=== PATIENT | female | born 1975 | race African-American/Black ===

== ENCOUNTER 2016-11-27 19:53 | Emergency (ER) | payer BC ==
--- NOTE | ~2016-11-27 | CT16 ---
[facility] A Service of [facility] RADIOLOGY TEXT RESULTS PATIENT: CECILLE AGUIRRE LOCATION: SED : [birth year] UNIT #: [id number] AGE: [address]: Benton Gutierrez MD SEX: F ORDER DR: [id number] [address] [address] [id number] E MR#: [id number] Acc #: [id number] NAME: CECILLE AGUIRRE : 1975 SEX: F STUDY DATE/TIME: 11/27/2016 20:53 UNIT: SED ROOM: STUDY DESCRIPTION: CT Angio Chest for PE Attending Physician: Benton Gutierrez M.D. Ordering Physician: Benton Gutierrez M.D. Primary Care Physician: Sarah Burt M.D. MEDICAL IMAGING REPORT This report is preliminary unless electronic signature is present. EXAM CT angiogram chest with IV contrast HISTORY Mid and left side chest pain today. Elevated D-dimer. FINDINGS IV contrast-enhanced CT angiogram of the chest was performed with 3-D reconstructions. This CT exam was performed with one or more of the following radiation dose reduction techniques: Automatic exposure control, adjustment of mA and/or kV according to patient size, and iterative reconstruction. No pulmonary infiltrates or effusions. No pulmonary embolus. Normal pulmonary arterial enhancement. No adenopathy. No pericardial effusion. Normal caliber thoracic aorta. IMPRESSION 1. No acute findings. 2. No pulmonary embolus. 3. No pulmonary infiltrates or effusions. Dictated by... Ulisses Jimenez M.D. THIS IS AN ELECTRONICALLY VERIFIED REPORT Ulisses Jimenez M.D. at 11/28/2016 2:21 PM DFL/psc TD: 11/28/2016 05:27 [facility] A Service of [facility] RADIOLOGY TEXT RESULTS PATIENT: CECILLE AGUIRRE LOCATION: SED : [birth year] UNIT #: [id number] AGE: [address]: Benton Gutierrez MD SEX: F ORDER DR: JOB #: [id number] MEDICAL IMAGING REPORT
--- NOTE | ~2016-11-27 | EKG ---
PATIENT: CECILLE AGUIRRE UNIT #: [id number] Ventricular Rate: 83 BPM Atrial Rate: 83 BPM P-R Interval: 172 ms QRS Duration: 76 ms Q-T Interval: 392 ms QTC Calculation(Bezet): 460 ms P [place]: 58 degrees Calculated R [place]: 68 degrees Calculated T [place]: 43 degrees Diagnosis Line: Normal sinus rhythm Diagnosis Line: Nonspecific T wave abnormality Diagnosis Line: Prolonged QT Diagnosis Line: Abnormal ECG Diagnosis Line: When compared with ECG of 20-MAY-2016 22:58, Diagnosis Line: Nonspecific T wave abnormality now evident in Diagnosis Line: Lateral leads Diagnosis Line: Confirmed by VERENICE SPRINGER MD ([id number]) on Diagnosis Line: 01/09/2017 7:02:21 AM INTERPRETING CECILIA SINCLAIR
[~2016-11-27 19:53] MED LIST: ALBUTEROL HFA INH; ANAPROX DS550 M1 PO; BACTRIM DS TABL1 TA1 PO; BENADRYL; DICLOFENAC PO; DIOVAN; FLEXERIL10 M1 PO; FLEXERIL10 MG PO; FOLIC ACID1 MG PO; HYDROCODON-ACE1 EAC9; IRON PILL PO; MACROBID100 M1 PO; METOPROLOL TAR25 MG; METOPROLOL TAR25 MG PO; NORCO1 TAB 10/3; PERCOCET PO; PREDNISONE PO; PRILOSEC; PRILOSEC20 M1 PO; ROBAXIN500 MG PO; STOMACH MED PO; ULTRAM PO; VOLTAREN75 MG PO; ZANTAC; ZOFRAN ODT4 MG PO; ZYRTEC10 M1 PO; [UNRECOGNIZED DRUG - REMARK]
[2016-11-27 19:55] LABS: BASOPHIL# 0.1 X10e3 (0-0.3); BASOPHIL% 0.8 % (0-2.5); EOSINOPHIL# 0.2 X10e3 (0-0.7); EOSINOPHIL% 2.3 % (0.0-7.0); HEMATOCRIT 34.9 % (35.0-45.0); HEMOGLOBIN 11.5 gm/dL (12.0-16.0); LYMPHOCYTE# 2.2 X10e3 (1.0-3.5); LYMPHOCYTE% 25.7 % (17.0-45.0); MEAN CELL VOLUME 81.2 FL (83-96); MEAN CORPUSCULAR HEMOGLOBIN 26.9 PG (28-34); MEAN CORPUSCULAR HGB CONC 33.1 g/dL (30-36); MEAN PLATELET VOLUME 9.6 FL (6.5-11.5); MONOCYTE# 0.7 X10e3 (0-1.0); NEUTROPHIL# 5.5 X10e3 (1.5-7.1); NEUTROPHIL% 63.2 % (40-75); PLATELET COUNT 244 X10e3 (140-420); RED BLOOD COUNT 4.29 X10e (3.90-5.30); RED CELL DISTRIBUTION WIDTH 23.4 % (11.0-15.5); WHITE BLOOD COUNT 8.7 X10e3 (4.0-10.5)
[2016-11-27 19:58] LABS: DIFF IND NO
[2016-11-27 20:04] LABS: INR 1.1; PROTHROMBIN TIME (PATIENT) 12.6 SECONDS (9.5-12.4)
[2016-11-27 20:11] LABS: PARTIAL THROMBOPLASTIN TIME 25.1 SECONDS (25.6-38.1)
[2016-11-27 20:13] LABS: ALKALINE PHOSPHATASE 54 U/L (32-92); ALT (SGPT) 15 U/L (10-40); AST (SGOT) 20 U/L (10-42); BILIRUBIN,TOTAL 0.2 mg/dL (0.2-2.0); BLOOD UREA NITROGEN 7 mg/dL (9-23); BUN/CREATININE RATIO 8.75; CALCIUM SERUM 8.9 mg/dL (8.4-10.2); CARBON DIOXIDE 23 mmol/L (22-31); CHLORIDE 105 mmol/L (100-111); CREATININE SERUM 0.8 mg/dL (0.6-1.4); GLOM FILT RATE Estimated ABOVE60 mL/min (>60); GLUCOSE FASTING 94 mg/dL (70-110); POTASSIUM 3.7 mmol/L (3.5-5.1); PROTEIN TOTAL SERUM 7.4 g/dL (6.0-8.3); SODIUM 136 mmol/L (135-145)
[2016-11-27 20:14] LABS: BILIRUBIN, DIRECT <0.1 mg/dL (0.0-0.2); BILIRUBIN,INDIRECT 0.1 mg/dL (0.0-0.9)
[2016-11-27 20:15] LABS: POC - CKMB <1.0 ng/mL (0.0-7.9); POC - MYOGLOBIN 64.5 ng/mL (0.0-169.0); POC - TROPONIN <0.05 ng/mL (<=0.05)
[2016-11-27 22:52] LABS: POC - CKMB <1.0 ng/mL (0.0-7.9); POC - MYOGLOBIN 65.5 ng/mL (0.0-169.0)
[2016-11-27 22:53] LABS: POC - TROPONIN <0.05 ng/mL (<=0.05)
[2017-06-12] MEDS ORDERED: NO MEDICATIONS (21:51)
[2017-06-12] MEDS ORDERED: PRILOSEC (21:51)
== END 2016-11-27 23:24 | disposition home or self-care (01) ==
LOC: SED 19:53
PROVIDERS: Emergency Medicine
DX: R07.9 Chest pain, unspecified (principal); F41.9 Anxiety disorder, unspecified; Z98.890 Other specified postprocedural states
CPT/HCPCS: 36415; 71275; 80048; 80076; 82553; 83874; 84484; 85025; 85379; 85610; 85730; 93005; 99284; Q9967

== ENCOUNTER 2017-03-18 18:08 | Emergency (ER) | payer BC ==
--- NOTE | ~2017-03-18 | CT4 ---
[facility] A Service of [facility] RADIOLOGY TEXT RESULTS PATIENT: CECILLE AGUIRRE LOCATION: SED : [birth year] UNIT #: [id number] AGE: [address]: Benton Gutierrez MD SEX: F ORDER DR: [id number] [address] [address] [id number] E MR#: [id number] Acc #: [id number] NAME: CECILLE AGUIRRE : 1975 SEX: F STUDY DATE/TIME: 03/18/2017 19:58 UNIT: SED ROOM: STUDY DESCRIPTION: CT Abd and Pelv Wo Cont Attending Physician: Benton Gutierrez M.D. Ordering Physician: Josey Hall M.D. Primary Care Physician: Sarah Burt M.D. MEDICAL IMAGING REPORT This report is preliminary unless electronic signature is present. EXAM CT abdomen and pelvis without contrast, PROCEDURE Axial unenhanced CT abdomen and pelvis with multiplanar reformats. This CT exam was performed with one or more of the following radiation dose reduction techniques: automatic exposure control, adjustment of mA and/or kV according to patient size, and iterative reconstruction. COMPARISON Prior CT abdomen and pelvis dated 05/01/2010. CLINICAL HISTORY Left lower quadrant abdominal pain for one day. FINDINGS The lung bases are normal. ABDOMEN: The liver and gallbladder and spleen and pancreas and kidney and adrenal glands are normal. The aorta is normal in caliber. There is no bowel obstruction. PELVIS: There is no pelvic mass or inflammatory change or abnormal fluid collection. The appendix is difficult to identify but appears normal. There is moderate uterine enlargement, and the uterus appears to either be blood filled or contain a large fibroid up to 5.5 cm in size. IMPRESSION Blood or fibroid or other isodense material fills the uterus which appears somewhat dilated with a 5-6 cm structure filling the uterine cavity. Otherwise negative. No renal or bowel or biliary obstruction. No mass or STS. [facility] A Service of [facility] RADIOLOGY TEXT RESULTS PATIENT: CECILLE AGUIRRE LOCATION: SED : [birth year] UNIT #: [id number] AGE: [address]: Benton Gutierrez MD SEX: F ORDER DR: inflammatory change or acute abnormality. Dictated by... Jay Echeverria M.D. THIS IS AN ELECTRONICALLY VERIFIED REPORT Jay Echeverria M.D. at 03/21/2017 5:34 PM CLIFF/judah TD: 03/19/2017 04:02 JOB #: [id number] MEDICAL IMAGING REPORT Page 1 of 1
[2017-03-18 19:04] LABS: BASOPHIL% 0.2 % (0-2.5); EOSINOPHIL# 0.2 X10e3 (0-0.7); EOSINOPHIL% 2.5 % (0.0-7.0); HEMATOCRIT 35.3 % (35.0-45.0); HEMOGLOBIN 11.7 gm/dL (12.0-16.0); LYMPHOCYTE% 31.3 % (17.0-45.0); MEAN CELL VOLUME 81.9 FL (83-96); MEAN CORPUSCULAR HEMOGLOBIN 27.1 PG (28-34); MEAN CORPUSCULAR HGB CONC 33.1 g/dL (30-36); MEAN PLATELET VOLUME 9.3 FL (6.5-11.5); MONOCYTE# 0.7 X10e3 (0-1.0); MONOCYTE% 11.2 % (3.0-12.0); NEUTROPHIL# 3.5 X10e3 (1.5-7.1); NEUTROPHIL% 54.8 % (40-75); PLATELET COUNT 249 X10e3 (140-420); RED BLOOD COUNT 4.31 X10e (3.90-5.30); RED CELL DISTRIBUTION WIDTH 15.4 % (11.0-15.5); WHITE BLOOD COUNT 6.4 X10e3 (4.0-10.5)
[2017-03-18 19:05] LABS: DIFF IND NO
[2017-03-18 19:22] LABS: ALBUMIN SERUM 4.4 g/dL (3.5-5.0); ALKALINE PHOSPHATASE 58 U/L (32-92); ALT (SGPT) 18 U/L (10-40); AMYLASE 18 U/L (0-46); AST (SGOT) 17 U/L (10-42); BILIRUBIN,TOTAL 0.3 mg/dL (0.2-2.0); BLOOD UREA NITROGEN 7 mg/dL (9-23); CALCIUM SERUM 8.3 mg/dL (8.4-10.2); CARBON DIOXIDE 23 mmol/L (22-31); CHLORIDE 107 mmol/L (100-111); CREATININE SERUM 0.7 mg/dL (0.6-1.4); GLOM FILT RATE Estimated 124.7 mL/min (>60); GLUCOSE FASTING 77 mg/dL (70-110); LIPASE 26 U/L (22-51); POTASSIUM 3.7 mmol/L (3.5-5.1); SODIUM 135 mmol/L (135-145)
[2017-03-18 19:31] LABS: BILIRUBIN, DIRECT <0.1 mg/dL (0.0-0.2); BILIRUBIN,INDIRECT 0.2 mg/dL (0.0-0.9)
[2017-03-18 19:33] LABS: URINE SOURCE CLEAN CATCH
[2017-03-18 19:35] LABS: MICRO INDICATED? YES; URINE APPEARANCE CLEAR; URINE BILIRUBIN NEG (NEG); URINE BLOOD 1+ (NEG); URINE COLOR YELLOW; URINE GLUCOSE NEG (NORM); URINE KETONE NEG (NEG); URINE LEUKOCYTE ESTERASE NEG (NEG); URINE NITRATE NEG (NEG); URINE PH 6.5 (5-8); URINE PROTEIN NEG (NEG); URINE UROBILINOGEN 0.2 MG/DL (NORM)
[2017-03-18 19:37] LABS: URINE BACTERIA NEG (NEG)
[2017-03-18 19:38] LABS: CULTURE INDICATED? NO; URINE SQUAMOUS EPITHELIAL CELL OCCAS /[HPF]; URINE TRANSITIONAL EPI CELLS FEW /[HPF]
[2017-06-12] MEDS ORDERED: NO MEDICATIONS (21:51)
[2017-06-12] MEDS ORDERED: PRILOSEC (21:51)
== END 2017-03-18 21:14 | disposition home or self-care (01) ==
LOC: SED 18:08
PROVIDERS: Student in an Organized Health Care Education/Training Program
DX: R10.84 Generalized abdominal pain (principal); R11.2 Nausea with vomiting, unspecified; K21.9 Gastro-esophageal reflux disease without esophagitis; Z88.0 Allergy status to penicillin; Z88.1 Allergy status to other antibiotic agents; Z88.8 Allergy status to other drugs, medicaments and biological substances; Z91.040 Latex allergy status; Z79.899 Other long term (current) drug therapy
CPT/HCPCS: 36415; 74176; 80048; 80076; 81003; 82150; 83690; 84703; 85025; 96361; 96374; 96375; 99284; J2270; J2405